=== PATIENT | male | born 1980 | race Caucasian/White ===

== ENCOUNTER 2020-05-03 18:04 | Inpatient (IN) ==
[2020-05-03] MEDS ORDERED: Ondansetron 4 MG/2 ML VIAL IVP PRN (20:21)
[2020-05-03] MEDS ORDERED: Naloxone 0.4 MG/ML INJ IVP PRN (20:21)
[2020-05-03] MEDS ORDERED: 0.9 % Sodium Chloride 1,000 ML ONE (20:35)
[2020-05-03] MEDS: 0.9 % Sodium Chloride 1,000 ML IVC SCH (20:46)
[2020-05-03] MEDS: *HR* Heparin 5,000 UNIT/ML VIAL SQ SCH (22:12)
[2020-05-03] MEDS: Dexamethasone 4 MG/ML VIAL IVP SCH (23:47)
[2020-05-03] MEDS: Piperacillin/Tazobactam 3.375 GM in 0.9 % Sodium Chloride Mini Bag 100 ML IVPB SCH (23:49)
[2020-05-04 04:46] LABS: Basophils % 0.2 %; Hematocrit 46.8 % (37.5-50.1); Hemoglobin 15.8 g/dL (12.9-16.9); Immature Granulocytes % 0.9 % (0-4); Lymphocytes # 1.8 K/mcL (0.6-4.6); Lymphocytes % 7.6 %; Mean Corpuscular HGB Conc 33.8 g/dL (31.6-35.5); Mean Corpuscular Hemoglobin 30.2 pg (28.0-33.3); Mean Corpuscular Volume 89.3 fL (83.0-100.0); Mean Platelet Volume 11.6 fL (9.4-12.4); Monocytes # 0.5 K/mcL (0.0-1.3); Monocytes % 2.2 %; Neutrophils # 20.4 K/mcL (1.6-8.9); Platelet Count 164 K/mcL (140-400); Red Blood Count 5.24 M/mcL (4.19-5.50); Red Cell Distribution Width 11.6 % (11.5-14.5); Segmented Neutrophils % 89.1 %; White Blood Count 22.9 K/mcL (4.3-11.1)
[2020-05-04 05:05] LABS: BUN/Creatinine Ratio 16 (6-26); Blood Urea Nitrogen 13 mg/dL (6-20); Calcium 8.9 mg/dL (8.6-10.3); Carbon Dioxide 25 mEq/L (23-29); Chloride 103 mEq/L (98-107); Glucose 230 mg/dL (70-105); Magnesium 1.9 mg/dL (1.6-2.6); Osmolality,Calculated 289 (280-300); Potassium 4.1 mEq/L (3.5-5.1); Sodium 136 mEq/L (136-145); eGFR For African Americans > 60 (> 60); eGFR For Non-African Americans > 60 (> 60)
[2020-05-04] MEDS: *HR* Heparin 5,000 UNIT/ML VIAL SQ SCH ×3 (06:14→22:16)
[2020-05-04] MEDS: Famotidine 20 MG/2 ML VIAL IVP SCH ×3 (06:14→18:23)
[2020-05-04] MEDS: Piperacillin/Tazobactam 3.375 GM in 0.9 % Sodium Chloride Mini Bag 100 ML IVPB SCH ×3 (08:17→23:57)
[2020-05-04] MEDS: Dexamethasone 4 MG/ML VIAL IVP SCH ×3 (08:18→23:58)
[2020-05-04] MEDS ORDERED: Vancomycin 1,500 MG/265 ML IV.SOLN IVPB SCH (09:00)
[2020-05-04] MEDS ORDERED: Ibuprofen 800 MG TABLET PO PRN (09:26)
[2020-05-04] MEDS ORDERED: Ibuprofen 400 MG TABLET PO PRN ×2 (17:00→17:16)
[2020-05-04] MEDS: 0.9 % Sodium Chloride 1,000 ML IVC SCH ×2 (17:14→18:23)
[2020-05-04] MEDS ORDERED: Ondansetron 4 MG/2 ML VIAL IVP PRN (17:16)
[2020-05-04] MEDS ORDERED: Melatonin 3 MG TABLET PO PRN (17:16)
[2020-05-04] MEDS ORDERED: Naloxone 0.4 MG/ML INJ IVP PRN (17:16)
[2020-05-04] MEDS: Vancomycin 1,750 MG/517.5 ML IV.SOLN IVPB SCH (19:34)
[2020-05-04] MEDS ORDERED: Vancomycin 1,750 MG/517.5 ML IV.SOLN IVPB SCH (20:00)
[2020-05-05] MEDS: *HR* Heparin 5,000 UNIT/ML VIAL SQ SCH (05:50)
[2020-05-05] MEDS: Famotidine 20 MG/2 ML VIAL IVP SCH (05:51)
[2020-05-05] MEDS: 0.9 % Sodium Chloride 1,000 ML IVC SCH (05:51)
[2020-05-05 06:03] LABS: Basophils % 0.2 %; Hematocrit 43.4 % (37.5-50.1); Hemoglobin 14.7 g/dL (12.9-16.9); Immature Granulocytes % 1.4 % (0-4); Immature Platelets 11.9 % (1.1-6.1); Lymphocytes # 1.9 K/mcL (0.6-4.6); Lymphocytes % 8.3 %; Mean Corpuscular HGB Conc 33.9 g/dL (31.6-35.5); Mean Corpuscular Hemoglobin 31.3 pg (28.0-33.3); Mean Corpuscular Volume 92.3 fL (83.0-100.0); Mean Platelet Volume 13.3 fL (9.4-12.4); Monocytes # 0.9 K/mcL (0.0-1.3); Monocytes % 3.8 %; Neutrophils # 19.6 K/mcL (1.6-8.9); Platelet Count 149 K/mcL (140-400); Red Cell Distribution Width 11.6 % (11.5-14.5); Segmented Neutrophils % 86.3 %; White Blood Count 22.7 K/mcL (4.3-11.1)
[2020-05-05 06:04] LABS: Basophils # 0.1 K/mcL (0.0-0.2)
[2020-05-05 06:06] LABS: VBG Ionized Calcium 0.97 mmol/L (1.15-1.35)
[2020-05-05 06:28] LABS: Alanine Aminotransferase 31 Units/L (7-52); Albumin 3.5 g/dL (3.5-5.7); Albumin/Globulin Ratio 1.3 (1.1-2.2); Alkaline Phosphatase 47 Units/L (34-104); Aspartate Amino Transferase 16 Units/L (13-39); BUN/Creatinine Ratio 24 (6-26); Bilirubin,Total 1.7 mg/dL (0.3-1.0); Blood Urea Nitrogen 18 mg/dL (6-20); Calcium 8.2 mg/dL (8.6-10.3); Carbon Dioxide 22 mEq/L (23-29); Chloride 106 mEq/L (98-107); Globulin 2.8 g/dL (2.4-3.5); Glucose 212 mg/dL (70-105); Magnesium 2.2 mg/dL (1.6-2.6); Osmolality,Calculated 288 (280-300); Phosphorous 2.7 mg/dL (2.7-4.5); Potassium 4.4 mEq/L (3.5-5.1); Sodium 135 mEq/L (136-145); Total Protein 6.3 g/dL (6.4-8.9); eGFR For African Americans > 60 (> 60); eGFR For Non-African Americans > 60 (> 60)
[2020-05-05] MEDS: Piperacillin/Tazobactam 3.375 GM in 0.9 % Sodium Chloride Mini Bag 100 ML IVPB SCH (08:25)
[2020-05-05] MEDS: Dexamethasone 4 MG/ML VIAL IVP SCH (08:38)
[2020-05-05 11:26] VITALS: BP 120/69
[2020-05-05] MEDS ORDERED: Vancomycin 1,750 MG/517.5 ML IV.SOLN IVPB SCH (12:00)
[2020-05-05] MEDS: Vancomycin 1,750 MG/517.5 ML IV.SOLN IVPB SCH (13:33)
== END 2020-05-05 16:15 | disposition home or self-care (01) | DRG 153 ==
LOC: ICNU
PROVIDERS: ADMIT Pediatrics; ATTEND Pediatrics